=== PATIENT | female | born 1945 | race Native Hawaiian/Other Pacific Islander ===

== ENCOUNTER 2022-12-07 11:20 | Emergency (ER) | payer OTHER ==
[~2022-12-07] VITALS: Ht 160 cm; Wt 46.7 kg
[2022-12-07 12:39] LABS: PLATELET COUNT 199 K/uL (152-353)
[2022-12-07 12:47] LABS: POTASSIUM 3.9 mmol/L (3.6-5.2)
[2022-12-07 13:09] LABS: PARTIAL THROMBOPLASTIN TIME 24.7 SECONDS (24.5-33.6)
[2022-12-07 14:00] VITALS: BP 139/85; TEMP 97.2
== END 2022-12-07 14:05 | disposition home or self-care (01) ==
LOC: ED 11:20
PROVIDERS: Emergency Medicine
DX: E46 Unspecified protein-calorie malnutrition (principal); R60.0 Localized edema
CPT/HCPCS: 80053; 83880; 84443; 84484; 85027; 85610; 85730; 93005; 99283

== ENCOUNTER 2023-04-21 11:04 | Outpatient (CLI) | payer OTHER | END 2023-04-21 18:58 | disposition home or self-care (01) | LOC: RAD 11:04 | PROVIDERS: ATTEND Physician Assistant | DX: M25.562 Pain in left knee (principal) ==